=== PATIENT | male | born 1995 | race African-American/Black ===

== ENCOUNTER 2017-09-07 09:48 | Emergency (ER) | payer OTHER ==
[~2017-09-07 09:48] MED LIST: CLARITIN10 MG PO; ZITHROMAX Z PA250 MG PO
[2017-09-07] MEDS ORDERED: Motrin,Rufen800 MG PO (10:03)
[2017-09-07] MEDS ORDERED: CYCLOBENZAPRINE10 MG PO (10:03)
== END 2017-09-07 10:30 | disposition home or self-care (01) ==
LOC: ED 09:48
DX: S29.012A Strain of muscle and tendon of back wall of thorax, initial encounter (principal); X50.1XXA Overexertion from prolonged static or awkward postures, initial encounter; Y93.89 Activity, other specified; Y92.89 Other specified places as the place of occurrence of the external cause; Y99.8 Other external cause status